=== PATIENT | female | born 2000 | race Hispanic/Latino ===

== ENCOUNTER 2023-06-30 17:50 | Inpatient (IN) | payer SELFPAY ==
[2023-06-30 18:00] VITALS: BMI 28.7
[2023-06-30] MEDS ORDERED: Morphine 2 MG/ML VIAL SLOW IVP SCH (21:00)
[2023-06-30] MEDS ORDERED: Morphine 4 MG/ML VIAL SLOW IVP PRN (21:28)
[2023-06-30] MEDS ORDERED: Morphine 2 MG/ML VIAL SLOW IVP PRN (21:28)
[2023-06-30] MEDS ORDERED: Ipratropium/Albuterol 3 ML NEB NEB PRN (21:28)
[2023-06-30] MEDS ORDERED: Ondansetron PF 4 MG/2 ML Vial IVP PRN (21:28)
[2023-06-30] MEDS ORDERED: Cyclobenzaprine 10 MG TAB PO PRN (21:30)
[2023-06-30] MEDS ORDERED: Sodium Chloride 0.9% 1,000 ML IV SCH (21:30)
[2023-06-30] MEDS ORDERED: traMADol HCl 50 MG TAB PO PRN (21:30)
[2023-06-30] MEDS ORDERED: Potassium Chloride 20 MEQ in Premix Bag 1 BAG IVPB SCH (22:00)
[2023-06-30] MEDS: CEFAZOLIN 2 GM in Sodium Chloride 0.9% 100 ML IVPB SCH (22:28)
[2023-06-30] MEDS: Lactated Ringer's 1,000 ML IV SCH (22:30)
[2023-06-30] MEDS: traMADol HCl 50 MG TAB PO SCH (23:08)
[2023-06-30] MEDS: Acetaminophen 500 MG TAB PO SCH (23:09)
[2023-07-01 05:01] LABS: #Basophils 0.1 thou/uL (0.0-0.2); #Eosinphils 0.1 thou/uL (0.0-0.7); #Monocytes 1.1 thou/uL (0.11-0.59); #Neutrophils 6.7 thou/uL (1.40-6.50); %Basophils 0.7 % (0.0-1.0); %Eosinophils 1.1 % (0.0-10.0); %Lymphocytes 34.6 % (21.0-51.0); %Monocytes 8.8 % (0.0-10.0); %Neutrophils 54.5 % (42.0-75.0); Hematocrit 34.6 % (36.0-47.0); Hemoglobin 11.5 g/dL (12.0-16.0); Mean Corpuscular HGB CONC 33.2 g/dL (32.0-36.0); Mean Corpuscular Hemoglobin 27.6 pg (27.0-31.0); Platelet Count 247 10x3/uL (130-400); RBC Distribution Width 13.3 % (11.5-14.5); Red Blood Cell (RBC) Count 4.17 mill/uL (4.20-5.40); White Blood Cell (WBC) Count 12.2 10x3/uL (4.8-10.8)
[2023-07-01 05:19] LABS: INR-International Normal Ratio 1.1; Prothrombin Time 14.2 sec (12.0-14.7)
[2023-07-01 05:20] LABS: PTT 27.9 sec (22.9-36.1)
[2023-07-01 05:29] LABS: Anion Gap 12 mmol/L (10-20); BUN (Urea Nitrogen) 9 mg/dL (7.0-18.7); Calc. Creatinine Clearance 141 mL/min (70-130); Calcium 8.4 mg/dL (7.8-10.44); Carbon Dioxide 20 mmol/L (22-29); Chloride 109 mmol/L (98-107); Estimated GFR 127; Glucose 92 mg/dL (70-105); Potassium 3.7 mmol/L (3.5-5.1); Sodium 137 mmol/L (136-145)
[2023-07-01] MEDS: Acetaminophen 500 MG TAB PO SCH ×4 (05:34→23:19)
[2023-07-01] MEDS: traMADol HCl 50 MG TAB PO SCH ×4 (05:34→23:20)
[2023-07-01] MEDS: CEFAZOLIN 2 GM in Sodium Chloride 0.9% 100 ML IVPB SCH ×3 (05:35→21:59)
[2023-07-01] MEDS: Lactated Ringer's 1,000 ML IV SCH ×3 (07:46→21:58)
[2023-07-01] MEDS ORDERED: Midazolam HCl 2 mg/2 ml Vial ONE (08:03)
[2023-07-01] MEDS ORDERED: Fentanyl 250 MCG/5 ML VIAL ONE (08:03)
[2023-07-01] MEDS ORDERED: PROPOFOL 200 MG/20 ML VIAL ONE (08:12)
[2023-07-01] MEDS ORDERED: Ondansetron PF 4 MG/2 ML Vial ONE (08:12)
[2023-07-01] MEDS ORDERED: Dexamethasone 20 MG/5 ML VIAL ONE (08:12)
[2023-07-01] MEDS ORDERED: Lidocaine 1% PF 5 ML VIAL ONE (08:12)
[2023-07-01] MEDS ORDERED: Ketorolac Tromethamine 30 MG/ML VIAL ONE (08:12)
[2023-07-01] MEDS: Famotidine/PF 20 mg/2ml Vial SLOW IVP SCH ×2 (09:15→21:59)
[2023-07-01] MEDS: Gabapentin 300 MG CAP PO SCH ×3 (09:15→21:59)
[2023-07-01] MEDS: Senokot S 8.6-50 MG TAB PO SCH ×2 (09:16→21:59)
[2023-07-01] MEDS: Polyethylene Glycol 3350 17 GM Packet PO SCH (09:16)
[2023-07-01] MEDS ORDERED: Ondansetron HCl/PF 4 MG/2 ML Vial IVP PRN (11:42)
[2023-07-01] MEDS ORDERED: Promethazine HCl 25 MG/ML VIAL IM PRN (11:42)
[2023-07-01] MEDS ORDERED: HYDROmorphone 2 MG/ML VIAL SLOW IVP PRN (11:42)
[2023-07-01] MEDS ORDERED: fentaNYL 50 mcg/mL 1 mL Vial ONE (11:51)
[2023-07-01] MEDS ORDERED: Meperidine HCl/PF 25 MG/ML VIAL ONE (12:04)
[2023-07-02] MEDS: Lactated Ringer's 1,000 ML IV SCH (05:01)
[2023-07-02] MEDS: Acetaminophen 500 MG TAB PO SCH ×4 (05:27→23:20)
[2023-07-02] MEDS: CEFAZOLIN 2 GM in Sodium Chloride 0.9% 100 ML IVPB SCH ×3 (05:27→20:49)
[2023-07-02] MEDS: traMADol HCl 50 MG TAB PO SCH ×4 (05:27→23:20)
[2023-07-02] MEDS: Senokot S 8.6-50 MG TAB PO SCH ×2 (09:25→20:49)
[2023-07-02] MEDS: Gabapentin 300 MG CAP PO SCH ×3 (09:25→20:49)
[2023-07-02] MEDS: Polyethylene Glycol 3350 17 GM Packet PO SCH (09:26)
[2023-07-02] MEDS: Famotidine/PF 20 mg/2ml Vial SLOW IVP SCH ×2 (09:26→20:49)
[2023-07-03] MEDS: Acetaminophen 500 MG TAB PO SCH ×4 (05:22→22:59)
[2023-07-03] MEDS: traMADol HCl 50 MG TAB PO SCH ×4 (05:22→22:59)
[2023-07-03] MEDS: CEFAZOLIN 2 GM in Sodium Chloride 0.9% 100 ML IVPB SCH (05:25)
[2023-07-03] MEDS: Famotidine/PF 20 mg/2ml Vial SLOW IVP SCH ×2 (09:29→21:04)
[2023-07-03] MEDS: Gabapentin 300 MG CAP PO SCH ×3 (09:29→21:04)
[2023-07-03] MEDS: Polyethylene Glycol 3350 17 GM Packet PO SCH (09:30)
[2023-07-03] MEDS: Senokot S 8.6-50 MG TAB PO SCH ×2 (09:30→21:03)
[2023-07-04] MEDS: traMADol HCl 50 MG TAB PO SCH ×5 (06:44→23:48)
[2023-07-04] MEDS: Acetaminophen 500 MG TAB PO SCH ×5 (06:44→23:47)
[2023-07-04] MEDS: Gabapentin 300 MG CAP PO SCH ×3 (08:33→21:00)
[2023-07-04] MEDS: Famotidine/PF 20 mg/2ml Vial SLOW IVP SCH ×2 (08:34→21:00)
[2023-07-04] MEDS: Polyethylene Glycol 3350 17 GM Packet PO SCH (10:05)
[2023-07-04] MEDS: Senokot S 8.6-50 MG TAB PO SCH ×2 (10:08→21:00)
[2023-07-04 16:05] LABS: #Basophils 0.1 thou/uL (0.0-0.2); #Eosinphils 0.3 thou/uL (0.0-0.7); #Monocytes 0.7 thou/uL (0.11-0.59); #Neutrophils 6.6 thou/uL (1.40-6.50); %Basophils 0.7 % (0.0-1.0); %Eosinophils 2.4 % (0.0-10.0); %Lymphocytes 29.7 % (21.0-51.0); %Monocytes 6.1 % (0.0-10.0); %Neutrophils 60.6 % (42.0-75.0); Hematocrit 36.3 % (36.0-47.0); Hemoglobin 12.2 g/dL (12.0-16.0); Mean Corpuscular HGB CONC 33.6 g/dL (32.0-36.0); Mean Corpuscular Hemoglobin 27.6 pg (27.0-31.0); Mean Corpuscular Volume 82.1 fl (78.0-98.0); Mean Platelet Volume 10.8 fL (7.4-10.4); Platelet Count 261 10x3/uL (130-400); RBC Distribution Width 13.1 % (11.5-14.5); Red Blood Cell (RBC) Count 4.42 mill/uL (4.20-5.40); White Blood Cell (WBC) Count 10.9 10x3/uL (4.8-10.8)
[2023-07-04 16:19] LABS: BHCG - Serum Negative (NEGATIVE); Pregs Control Background? CLEAR/WHITE (CLR/WHITE); Pregs Control Bar Appear? YES (CONTROL BAR)
[2023-07-04] MEDS ORDERED: CEFAZOLIN 2 GM in Sodium Chloride 0.9% 100 ML IVPB SCH (16:30)
[2023-07-04] MEDS ORDERED: fentaNYL PF 100 MCG/2 ML SYRINGE ONE ×2 (18:56)
[2023-07-04] MEDS ORDERED: HYDROmorphone 0.5 MG/0.5 ML SYRINGE ONE (18:57)
[2023-07-04] MEDS ORDERED: Bupivacaine PF 0.5% 30 ML VIAL ONE (19:16)
[2023-07-04] MEDS ORDERED: Bacitracin Zinc Ointment 30 gm TUBE ONE (19:16)
[2023-07-04] MEDS ORDERED: Midazolam HCl 2 mg/2 ml Vial ONE (19:19)
[2023-07-04] MEDS ORDERED: PHENYLEPHRINE-NS 100 MCG/ML 10 ML SYRINGE ONE (19:40)
[2023-07-04] MEDS ORDERED: Ketorolac Tromethamine 30 MG/ML VIAL ONE (19:40)
[2023-07-04] MEDS ORDERED: Ondansetron PF 4 MG/2 ML Vial ONE (19:40)
[2023-07-04] MEDS ORDERED: PROPOFOL 200 MG/20 ML VIAL ONE (19:40)
[2023-07-04] MEDS ORDERED: Dexamethasone 20 MG/5 ML VIAL ONE (19:40)
[2023-07-04] MEDS ORDERED: Lidocaine 1% PF 5 ML VIAL ONE (19:40)
[2023-07-04] MEDS ORDERED: Morphine 4 MG/ML VIAL SLOW IVP PRN (23:16)
[2023-07-05] MEDS: CEFAZOLIN 2 GM in Sodium Chloride 0.9% 100 ML IVPB SCH ×2 (02:30→08:19)
[2023-07-05] MEDS: Acetaminophen 500 MG TAB PO SCH ×3 (05:48→17:34)
[2023-07-05] MEDS: traMADol HCl 50 MG TAB PO SCH ×3 (05:49→17:35)
[2023-07-05] MEDS: Gabapentin 300 MG CAP PO SCH ×3 (08:19→20:29)
[2023-07-05] MEDS: Polyethylene Glycol 3350 17 GM Packet PO SCH (08:19)
[2023-07-05] MEDS: Famotidine/PF 20 mg/2ml Vial SLOW IVP SCH ×2 (08:19→20:28)
[2023-07-05] MEDS: Senokot S 8.6-50 MG TAB PO SCH ×2 (08:19→20:28)
[2023-07-06] MEDS: Acetaminophen 500 MG TAB PO SCH ×3 (00:43→11:06)
[2023-07-06] MEDS: traMADol HCl 50 MG TAB PO SCH ×3 (00:44→11:06)
[2023-07-06] MEDS: Polyethylene Glycol 3350 17 GM Packet PO SCH (09:01)
[2023-07-06] MEDS: Famotidine/PF 20 mg/2ml Vial SLOW IVP SCH (09:01)
[2023-07-06] MEDS: Gabapentin 300 MG CAP PO SCH ×2 (09:02→15:15)
[2023-07-06] MEDS: Senokot S 8.6-50 MG TAB PO SCH (09:02)
[2023-07-06 15:47] VITALS: BP 124/85; TEMP 98.3
== END 2023-07-06 16:11 | disposition home or self-care (01) | DRG 41 ==
LOC: SURG A 17:50
PROVIDERS: ADMIT Specialist; ATTEND Specialist
PROC: 0LQN0ZZ Repair Right Lower Leg Tendon, Open Approach (ICD-10-PCS; principal; 2023-07-01)
PROC: 04L Lower Arteries, Occlusion (ICD-10-PCS; 2023-07-01)
PROC: 01QH0ZZ Repair Peroneal Nerve, Open Approach (ICD-10-PCS; 2023-07-04)
DX: S84.11XA Injury of peroneal nerve at lower leg level, right leg, initial encounter (principal); S86.221A Laceration of muscle(s) and tendon(s) of anterior muscle group at lower leg level, right leg, initial encounter; S96.021A Laceration of muscle and tendon of long flexor muscle of toe at ankle and foot level, right foot, initial encounter; W45.8XXA Other foreign body or object entering through skin, initial encounter
CPT/HCPCS: 36415; 80048; 84703; 85025; 85610; 85730; J1100; J1170; J1650; J1885; J2175; J2250; J2272; J2405; J2704; J3010; J3480; J3490; J7120; S0020; S0028